=== PATIENT | male | born 1975 | race Caucasian/White ===

== ENCOUNTER 2022-04-24 14:41 | Inpatient (IN) ==
[2022-04-24 15:50] LABS: Hematocrit 48 % (42-52); Hemoglobin 16.2 g/dL (14.0-18.0); Mean Corpuscular HGB Conc 34 g/dL (31-36); Mean Corpuscular Hemoglobin 35 pg (27-31); Mean Corpuscular Volume 102 fL (80-94); Mean Platelet Volume 9.2 fL (7.4-10.4); Platelet Count 221 10^3/uL (150-450); Red Blood Count 4.64 10^6 /uL (4.18-5.48); Red Cell Distribution Width 13 % (10-15); White Blood Count 4.2 10^3/uL (3.5-10.8)
[2022-04-24 16:01] LABS: High Sens Troponin Baseline 259 pg/mL (<20)
[2022-04-24 16:17] LABS: ABS Lymphocytes 0.7 10^3/ul (1.0-4.8); ABS Monocytes 0.4 10^3/ul (0-0.8); ABS Neutrophils 3.1 10^3/ul (1.5-7.7); Eosinophil % 0.2 %; Lymphocyte % 16.2 %; Nucleated Red Blood Cells % 0.1
[2022-04-24 16:18] LABS: ALT 34 U/L (7-52); Albumin 4.8 g/dL (3.2-5.2); Albumin/Globulin Ratio 1.8 (1-3); Alkaline Phosphatase 71 U/L (35-149); Blood Urea Nitrogen 11 mg/dL (6-24); CO2 Carbon Dioxide 26 mmol/L (22-32); Calcium 9.8 mg/dL (8.6-10.3); Chloride 102 mmol/L (101-111); Globulin 2.6 g/dL (2-4); Glucose 89 mg/dL (70-100); Sodium 137 mmol/L (135-145); Total Protein 7.4 g/dL (6.4-8.9); eGFR CKD-EPI 80.5 (>60)
[2022-04-24 16:22] LABS: Anion Gap 9 mmol/L (2-11)
[2022-04-24] MEDS ORDERED: Lorazepam PYXIS KEY PRN (16:27)
[2022-04-24] MEDS ORDERED: LORazepam 2 mg VIAL 1 ml IV PUSH ONE (16:27)
[2022-04-24 17:02] LABS: High Sensitivity Troponin 1 Hr 1061 pg/mL (<20)
[2022-04-24] MEDS ORDERED: Heparin DRIP 25,000 UNITS BAG 25,000 UNITS/500 ML BAG IV SCH (17:30)
[2022-04-24] MEDS ORDERED: Heparin 5000 UNITS/ML 1 mL VIAL ONE (17:43)
[2022-04-24] MEDS: Heparin 5000 UNITS/ML 1 mL VIAL IV SCH (17:46)
[2022-04-24] MEDS ORDERED: Thiamine 100 MG/ML 2 ml VIAL (200 mg) IM ONE (17:50)
[2022-04-24 19:03] LABS: Cholesterol 252 mg/dL; HDL Cholesterol 92.8 mg/dL; LDL Cholesterol 139 mg/dL; Triglycerides 102 mg/dL
[2022-04-24 19:18] LABS: TSH Ultra Thyroid Stim Horm 0.92 mcIU/mL (0.34-5.60)
[2022-04-24 20:05] LABS: ABS Lymphocytes 0.9 10^3/ul (1.0-4.8); ABS Monocytes 0.4 10^3/ul (0-0.8); ABS Neutrophils 2.4 10^3/ul (1.5-7.7); Eosinophil % 0.5 %; Hematocrit 48 % (42-52); Hemoglobin 16.1 g/dL (14.0-18.0); Lymphocyte % 24.1 %; Mean Corpuscular HGB Conc 34 g/dL (31-36); Mean Corpuscular Hemoglobin 35 pg (27-31); Mean Corpuscular Volume 103 fL (80-94); Mean Platelet Volume 9.3 fL (7.4-10.4); Nucleated Red Blood Cells % 0.2; Platelet Count 218 10^3/uL (150-450); Red Blood Count 4.61 10^6 /uL (4.18-5.48); Red Cell Distribution Width 13 % (10-15); White Blood Count 3.8 10^3/uL (3.5-10.8)
[2022-04-24 20:48] LABS: eGFR CKD-EPI 90.2 (>60)
[2022-04-24 20:50] LABS: Potassium Redraw 3.5 mmol/L (3.5-5.0)
[2022-04-24] MEDS: NS 0.9% 1000 ml BAG 1,000 ML IV SCH (23:52)
[2022-04-25] MEDS ORDERED: Potassium Chlor 20 meq TAB.ER PO ONE (03:08)
[2022-04-25 05:17] LABS: ABS Eosinophils 0.1 10^3/ul (0-0.6); ABS Lymphocytes 1.2 10^3/ul (1.0-4.8); ABS Monocytes 0.5 10^3/ul (0-0.8); ABS Neutrophils 1.2 10^3/ul (1.5-7.7); Eosinophil % 1.7 %; Hematocrit 48 % (42-52); Hemoglobin 16.5 g/dL (14.0-18.0); Lymphocyte % 40.6 %; Mean Corpuscular HGB Conc 34 g/dL (31-36); Mean Corpuscular Hemoglobin 35 pg (27-31); Mean Corpuscular Volume 103 fL (80-94); Mean Platelet Volume 8.8 fL (7.4-10.4); Platelet Count 203 10^3/uL (150-450); Red Blood Count 4.71 10^6 /uL (4.18-5.48); Red Cell Distribution Width 13 % (10-15); White Blood Count 2.9 10^3/uL (3.5-10.8)
[2022-04-25] MEDS: Heparin 5000 UNITS/ML 1 mL VIAL IV SCH (05:38)
[2022-04-25 05:54] LABS: Calcium 9.6 mg/dL (8.6-10.3); Potassium 4.1 mmol/L (3.5-5.0); eGFR CKD-EPI 118.1 (>60)
[2022-04-25] MEDS ORDERED: VERAPAMIL 2.5 MG/ML 2 ML VIAL ** 5 mg/2 ml ONE (08:32)
[2022-04-25] MEDS ORDERED: nitroGLYCERIN DRIP 25,000 MCG/250 ML BTL ONE (08:32)
[2022-04-25] MEDS ORDERED: Heparin 2 UNITS/ML 1000 mls 2,000 ML IV ONE (08:32)
[2022-04-25] MEDS ORDERED: Lidocaine 1% MPF 5 ML VIAL ONE (08:32)
[2022-04-25] MEDS ORDERED: Heparin 1,000 UNIT/ML 10 ml (10,000 UNITS) CATHLAB/DIALYSIS ONE (08:32)
[2022-04-25] MEDS ORDERED: fentaNYL 100 mcg/2 ml 50 MCG/ML VIAL ONE (08:32)
[2022-04-25] MEDS ORDERED: Midazolam 5 mg/5 ml VIAL 1 mg/ml 5 ml VIAL (5 mg) ONE (08:32)
[2022-04-25] MEDS ORDERED: Iohexol 350 (CONTRAST) 100 ML PAK IV ONE (08:33)
[2022-04-25] MEDS ORDERED: niCARdipine 0.1MG/ML IVPREMIX 20 MG/200 ML BAG IV ONE (08:33)
[2022-04-25] MEDS ORDERED: Multivitamins/Minerals TAB PO SCH (09:00)
[2022-04-25] MEDS: NS 0.9% 1000 ml BAG 1,000 ML IV SCH (14:51)
[2022-04-25 15:01] VITALS: BP 131/92
== END 2022-04-25 17:20 | disposition home or self-care (01) | DRG 192 ==
LOC: EDBD → EDHOLD 14:41 → ED 14:41 → SUATTDRO 18:35 → OBSVTOIN 18:35 → MEDTELE 04-25 00:02
PROVIDERS: ADMIT Internal Medicine; ATTEND Student in an Organized Health Care Education/Training Program